=== PATIENT | female | born 1960 | race Caucasian/White ===

== ENCOUNTER 2017-11-12 06:46 | Day surgery (SDC) | payer BC, OTHER ==
[2017-11-12] MEDS ORDERED: LIDOCAINE HCL 2% MPF 10 ML SOL ONE ×2 (07:18→08:02)
[2017-11-12] MEDS ORDERED: BUPIVACAINE HCL 0.5% MPF 10 ML SOL ONE (07:18)
[2017-11-12] MEDS ORDERED: PROPOFOL 500 MG/50 ML EMU IV ONE (07:37)
[2017-11-12] MEDS ORDERED: MIDAZOLAM 2 MG/2 ML SOL ONE (07:38)
[2017-11-12] MEDS ORDERED: FENTANYL 100MCG/2ML SOL ONE (07:38)
[2017-11-12 09:17] VITALS: RESP 18
[2017-11-12 09:38] VITALS: BP 129/88; PULSE 65; TEMP 97.6; O2SAT 99
== END 2017-11-12 10:20 | disposition home or self-care (01) | DRG 74 ==
LOC: SURG 06:46
PROVIDERS: ATTEND Orthopaedic Surgery
DX: G56.02 Carpal tunnel syndrome, left upper limb (principal); M65.312 Trigger thumb, left thumb
CPT/HCPCS: J2250; J3010; A6402; J2704